=== PATIENT | female | born 1955 | race Caucasian/White ===

== ENCOUNTER 2020-04-27 11:11 | Outpatient (CLI) | payer BC, MEDICARE, SELFPAY ==
--- NOTE | ~2020-04-27 | XR_ITS ---
XR knee LT 2V DATE: 04/27/2020 11:35 INDICATION: Fall years ago. Anterior and medial left knee pain TECHNIQUE: AP and lateral views COMPARISON: None FINDINGS: There is mild periarticular spurring at all 3 compartments. There is moderate loss of heigh t of medial compartment joint space. No fracture or dislocation or joint effusion. No periosteal reaction or bone destruction. No radiopaq ue intra-articular loose body or chondrocalcinosis. IMPRESSION: Tricompartment osteoarthritis Reviewed, dictated and finalized at location A.
== END 2020-04-27 11:12 | disposition home or self-care (01) ==
LOC: ANHIMG 11:17
PROVIDERS: PCP Family Medicine; Visit Provider Nurse Practitioner Family
DX: M25.569 Pain in unspecified knee (principal); M17.12 Unilateral primary osteoarthritis, left knee
CPT/HCPCS: 73560

== ENCOUNTER 2023-04-10 13:19 | Outpatient (CLI) | payer MEDICARE, OTHER, SELFPAY ==
--- NOTE | ~2023-04-10 | MM_ITS ---
EXAMINATION: MM screening [facility] BI w margoth HISTORY: Screening mammogram TECHNIQUE: Craniocaudal and mediolateral oblique 3-D tomosynthesis images were obtained and synthetic 2-D images were generated. CAD analysis was submitted and interpreted. COMPARISON: 06/13/2012, 05/16/2008 BREAST PARENCHYMAL COMPOSITION: There are scattered areas of fibroglandular density. FINDINGS: RIGHT BREAST: There is a possible mass in the anterior third of the lower-outer breast 3 cm from the nipple. LEFT BREAST: There is a possible mass in the middle third of the slightly upper breast 7 cm from the nipple. IMPRESSION: 1. Possible breast masses. 2. Additional mammographic views and possible breast ultrasound are recommended. BI-RADS Category 0: Incomplete: Needs additional imaging evaluation. Reviewed, dictated and finalized at location A. IMPRESSION: 1. Possible breast masses. 2. Additional mammographic views and possible breast ultrasound are recommended . BI-RADS Category 0: Incomplete: Needs additional imaging evaluation.
--- NOTE | ~2023-04-10 | DEXA_ITS ---
Bone Density Report Name: MERRILL ALEXANDER Age: 67 Sex: Female Ethnicity: White Date of : 1955 Indication: postmenopausal; screening for osteoporosis; height loss; cancer; hysterectomy; Referring Provider: Juan Braden Study: Bone densitometry was performed. Exam Date: April 10, 2023 Accession number: [id number] Bone Density: Region BMD T-score Z-score Classification AP Spine(L1, L2, L4) 1.185 1.4 3.3 Normal Femoral Neck (Left) 0.909 0.5 2.2 Normal Total Hip (Left) 1.074 1.1 2.5 Normal Femoral Neck (Right) 0.890 0.4 2.1 Normal Total Hip (Right) 1.096 1.3 2.7 Normal Femoral Neck Mean 0.899 0.5 2.1 Normal Total Hip Mean 1.085 1.2 2.6 Normal World Health Organization criteria for BMD impression classify patients as: Normal (T-score at or above -1.0), Osteopenia (T-score between -1.0 and -2.5), or Osteoporosis (T-score at or below -2.5). 10-year Fracture Risk: FRAX not reported because: All T-scores for Spine Total, Hip Total, Femoral Neck at or above -1.0 Clinical Information Provided by Patient: Has the following medical conditions: Cancer, Hysterectomy Patient maximum height was 64 Menopause Age: 57 No regular weight bearing exercise Does not regularly consume dairy products Drinks caffeinated beverages Onset of menses at age 11 Number of children 3 Impression: The patient has normal bone mass. Discussion: LOW RISK OF FRACTURE; BONE DENSITY IS WELL ABOVE THE MINIMUM DESIRABLE LEVEL AND ABOVE AVERAGE FOR AGE AND SEX AT ALL SKELETAL SITES TESTED. This person's bone density is above expected limits for age and sex. This is rarely clinically significant, but should be pursued if there are significant musculoskeletal complaints. The patient should follow a healthful lifestyle (good nutrition with adequate calcium and vitamin D, and appropriate weight-bearing exercise). Follow-Up: Consider repeating this study in 5 years or sooner if there is some new clinical indication. Reported by: Dr. Nic Teran on 04/10/2023 1:53:00 PM. Reviewed, dictated and finalized at location A. [facility]
== END 2023-04-10 13:20 | disposition home or self-care (01) ==
LOC: CHSIMG 13:22
PROVIDERS: PCP Family Medicine; Visit Provider Obstetrics & Gynecology
DX: Z12.31 Encounter for screening mammogram for malignant neoplasm of breast (principal); Z78.0 Asymptomatic menopausal state; R92.8 Other abnormal and inconclusive findings on diagnostic imaging of breast
CPT/HCPCS: 77063; 77067; 77080

== ENCOUNTER 2023-04-17 09:38 | Outpatient (CLI) | payer MEDICARE, OTHER, SELFPAY ==
--- NOTE | ~2023-04-17 | MMUS_ITS ---
EXAMINATION: MM diagnostic [facility] BI w margoth, US breast BI complete HISTORY: Possible breast masses noted on 04/06/2023 bilateral screening mammogram examinations TECHNIQUE: Additional 3-D tomosynthesis images of both breasts were performed and synthetic 2-D image s were generated. CAD analysis was submitted and interpreted. High resolution complete bilateral chris st ultrasound examination including all 4 quadrants and subareolar areas was performed. COMPARISON: 04/06/2023 bilateral screening mammogram 06/13/2012 bilateral screening mammogram FINDINGS: MAMMOGRAPHIC FINDINGS: Scattered occasional bilateral subcentimeter low-density circumscribed opacities are noted. No suspicious mass or architectural distortion, malignant calcification, skin thickening or retractio n is evident in either breast. ULTRASOUND: There are bilateral occasional scattered circumscribed hypoechoic or sonolucent subcentimeter lesions including right breast 12:00 7 cm from nipple, 6:00 near nipple and 8:00 6 cm from nipple and on the left at 12:00 3 cm from the nipple and 10:00 3 cm from the nipple. No suspicious shadowing or vascul arity is noted in association with any of these. No suspicious solid mass or shadowing of either breast is detected. IMPRESSION: 1. Benign findings; no mammographic or sonographic evidence of malignancy 2. Routine annual mammographic screening is recommended BI-RADS Category 2: Benign finding(s). Reviewed, dictated and finalized at location A. IMPRESSION: 1. Benign findings; no mammographic or sonographic evidence of malignancy 2. Routine annual mammographic screening is recommended BI-RADS Category 2: Benign finding(s).
== END 2023-04-17 09:39 | disposition home or self-care (01) ==
LOC: CHSIMG 09:39
PROVIDERS: PCP Family Medicine; Visit Provider Obstetrics & Gynecology
DX: R92.8 Other abnormal and inconclusive findings on diagnostic imaging of breast (principal)
CPT/HCPCS: 76641; 77062; 77066; G0279

== ENCOUNTER 2023-09-26 03:04 | Day surgery (SDC) | payer MEDICARE, OTHER, SELFPAY ==
[2023-08-28 14:47] VITALS: BMI 40.0
--- NOTE | 2023-09-22 10:15 | SUR.PREOP ---
Patient called regarding upcoming procedure. Reviewed preop instructions, appointment times, and procedure prep.
--- NOTE | 2023-09-25 14:55 | PM.HPGS ---
History of Present Illness History of Present Illness Consent: Risks, benefits, and alternatives have been discussed and questions answered. Patient agrees to proceed with procedure. Chief complaint: fam hx colon ca Narrative: Angela Johns is a 67 year old female Referred for colon cancer screening due to the fact that her father had colon cancer. Review of Systems Review of Systems: All systems reviewed & are unremarkable except as noted in HPI and below PMFSH Past Medical History Medical History BMI 36.0-36.9,adult BMI 39.0-39.9,adult Essential (primary) hypertension History of endometrial cancer History of vaginal delivery Mixed hyperlipidemia Surgical History Surgical History H/O: hysterectomy Family History Family History Mother Hypertension Father Carcinoma of colon Sibling Hypertension Social History Social History Smoking status: Never smoker Second hand tobacco smoke exposure: No Alcohol intake: current Drinks per week: 1 Substance use: never Substance use type: does not use Do You Feel Safe in your Home?: Yes Lack of Transportation: No Lack of Food: Never True Current Housing: I Have Housing Concerned About Future Housing: No Difficulty Paying Gas/Electric Bills: No Difficulty Paying for Meds: No Currently Unemployed: No Education: High School Diploma/GED Difficulty w/ Childcare or Family Care: No Living arrangements: with family Additional living arrangements comments: Occupation/Education: retired Additional occupation/education comments: [employer] Gender identity (if verbalized by the patient): Female Sexual Orientation (if Verbalized by the Patient): Straight or Heterosexual Spiritual care concerns: No Agree to blood products: Yes Meds Home Medications and Allergies Home Medications Medication Instructions Recorded Confirmed Type acetaminophen 650 mg 650 mg PO Q12H 06/22/21 09/26/23 History tablet,extended release (Tylenol Arthritis Pain) rosuvastatin 20 mg tablet (Crestor) 20 mg PO DAILY #90 tabs 08/04/22 09/26/23 Rx valsartan 160 1 tablet PO DAILY #90 tabs 04/25/23 09/26/23 Rx mg-hydrochlorothiazide 25 mg tablet paroxetine HCl 10 mg tablet 10 mg PO DAILY #90 tabs 07/21/23 09/26/23 Rx meloxicam 15 mg tablet 15 mg PO DAILY #90 tabs 08/15/23 09/26/23 Rx Allergies Allergy/AdvReac Type Severity Reaction Status Date / Time No Known Allergies Allergy Verified 09/26/23 07:52 Exam Const: General: alert Orientation/consciousness: patient oriented x3 Resp: Auscultation: clear to auscultation bilaterally Cardio: Rhythm: regular rhythm GI: GI Palp: Yes Soft to palpation and No Tenderness to palpation present (GI) Neuro: General: patient oriented x3 Assessment and Plan Assessment and plan (1) Colon cancer screening: Code(s): Z12.11 - Encounter for screening for malignant neoplasm of colon Status: Acute Assessment and Plan: Colonoscopy with possible biopsy or polypectomy or cautery or injection of substances.
[2023-09-26 07:18] VITALS: BP 172/83; PULSE 69; RESP 18; TEMP 36.2; O2SAT 96
[2023-09-26] MEDS: LACTATED RINGERS 1,000 ML 150 ML IV CONT (07:44)
--- NOTE | 2023-09-26 07:50 | WPDANESEPPF ---
Anes - Initial Pre Proc Eval Procedure: Operation Date: 09/26/23 08:30 Proposed Procedures p Colonoscopy - Timo Small MD Date/Time: 09/26/23 07:50 Surgeon: Timo Small MD Pre Op Diagnosis: fam hx colon ca Patient Data Age: 67 Gender: F Height: 1.6 m Weight: 100.2 kg Last Vital Signs Temp 97.1 F L 09/26/23 07:18 Pulse 69 09/26/23 07:18 Resp 18 09/26/23 07:18 BP 172/83 H 09/26/23 07:18 Pulse Ox 96 09/26/23 07:18 O2 Del Method Room Air 09/26/23 07:18 Allergies Allergy/AdvReac Type Severity Reaction Status Date / Time No Known Allergies Allergy Verified 09/26/23 07:52 Home Medications Medication Instructions Recorded Confirmed Type acetaminophen 650 mg 650 mg PO Q12H 06/22/21 09/08/23 History tablet,extended release (Tylenol Arthritis Pain) rosuvastatin 20 mg tablet (Crestor) 20 mg PO DAILY #90 tabs 08/04/22 09/08/23 Rx valsartan 160 1 tablet PO DAILY #90 tabs 04/25/23 09/08/23 Rx mg-hydrochlorothiazide 25 mg tablet paroxetine HCl 10 mg tablet 10 mg PO DAILY #90 tabs 07/21/23 09/08/23 Rx meloxicam 15 mg tablet 15 mg PO DAILY #90 tabs 08/15/23 09/08/23 Rx Patient hx anesthesia problems: none Family hx anesthesia problems: none Results Review: All pre-operative results and documents have been reviewed as part of the pre-operative evaluation. [facility] Past Medical History Medical History BMI 36.0-36.9,adult BMI 39.0-39.9,adult Essential (primary) hypertension History of endometrial cancer History of vaginal delivery Mixed hyperlipidemia Surgical History Surgical History H/O: hysterectomy Family History Family History Mother Hypertension Father Carcinoma of colon Sibling Hypertension Social History Social History Smoking status: Never smoker Second hand tobacco smoke exposure: No Alcohol intake: current Drinks per week: 1 Substance use: never Substance use type: does not use Do You Feel Safe in your Home?: Yes Lack of Transportation: No Lack of Food: Never True Current Housing: I Have Housing Concerned About Future Housing: No Difficulty Paying Gas/Electric Bills: No Difficulty Paying for Meds: No Currently Unemployed: No Education: High School Diploma/GED Difficulty w/ Childcare or Family Care: No Living arrangements: with family Additional living arrangements comments: Occupation/Education: retired Additional occupation/education comments: [employer] Gender identity (if verbalized by the patient): Female Sexual Orientation (if Verbalized by the Patient): Straight or Heterosexual Spiritual care concerns: No Agree to blood products: Yes Anes - Eval Final PreProcedure Day of Procedure 09/26/23 07:50 Patient weight: morbidly obese Heart: regular rate and rhythm Lungs: clear to auscultation Airway: Mallampati scale class II Neurological: alert and oriented Last oral intake: >/= 8 hours ASA classification: III Emergent: no Anesthetic plan: proceed Anesthesia type and monitoring: general GIVS and standard monitoring Results Review: All pre-operative results and documents have been reviewed as part of the pre-operative evaluation. Informed Consent: The patient's anesthetic plan and its attendant risks and benefits were discussed with the patient/family/POA. Questions were solicited and answers provided to the satisfaction of the patient/family/POA.
[2023-09-26 08:55] VITALS: BP 115/58; PULSE 59; RESP 21; O2SAT 94
[2023-09-26 09:01] VITALS: BP 118/62; PULSE 58; RESP 16; O2SAT 94
[2023-09-26 09:11] VITALS: BP 115/58; PULSE 59; RESP 21; O2SAT 94
== END 2023-09-26 09:17 | disposition home or self-care (01) ==
PROVIDERS: PCP Family Medicine; Visit Provider Internal Medicine Gastroenterology
PROC: 0DJD8ZZ Inspection of Lower Intestinal Tract, Via Natural or Artificial Opening Endoscopic (ICD-10-PCS; CPT 45378; principal; 2023-09-26 08:30)
DX: Z12.11 Encounter for screening for malignant neoplasm of colon (principal); K56.609 Unspecified intestinal obstruction, unspecified as to partial versus complete obstruction; K57.30 Diverticulosis of large intestine without perforation or abscess without bleeding; Z80.0 Family history of malignant neoplasm of digestive organs; I10 Essential (primary) hypertension; E78.2 Mixed hyperlipidemia; Z85.42 Personal history of malignant neoplasm of other parts of uterus; E66.01 Morbid (severe) obesity due to excess calories; Z68.39 Body mass index [BMI] 39.0-39.9, adult
CPT/HCPCS: G0105; J2704; J7120

== ENCOUNTER 2024-10-01 09:15 | Outpatient (CLI) | payer MEDICARE, OTHER, SELFPAY ==
--- NOTE | 2024-10-01 09:26 | ECHO_ITS ---
Patient Info Name: Angela Johns Age: 68 years : 1955 Gender: Female Ht: 63 in Wt: 223 lbs BSA: 2.17 m2 HR: 64 bpm BP: 180 / 93 mmHg Technical Quality: Fair Exam Date: 10/01/2024 10:10 AM Exam Location: Echo Lab Patient Status: Outpatient Admit Date: 10/01/2024 Staff Ordering Physician: Olimpia Navarro NP Cold Strip Feeder: Rachael Garcia RDCS Attending Provider: Olimpia Navarro NP Referring Physician: Ramon HENRY; Exam Type: CA echo doppler color flow Study Info Indications - OTHER FORMS OF DYSPNEA Complete two-dimensional, color flow and Doppler transthoracic echocardiogram is performed. Summary 1. Complete two-dimensional, color flow and Doppler transthoracic echocardiogram is performed. 2. Left ventricular chamber dimension is normal. 3. Left ventricular systolic function is normal, estimated at 60-65%. 4. There is mild concentric increased left ventricular wall thickness. 5. The left ventricular diastolic function is grade I diastolic dysfunction. 6. E/e' 12 is mildly elevated. 7. Left atrial chamber dimension is mildly enlarged. 8. Dilated inferior vena cava with >50% collapse upon inspiration consistent with elevated right atrial pressure, 10 mmHg. Left Ventricle E/e' 12 is mildly elevated. Left ventricular chamber dimension is normal. Left ventricular systolic function is normal, estimated at 60-65%. There is mild concentric increased left ventricular wall thickness. The left ventricular diastolic function is grade I diastolic dysfunction. Right Ventricle Right ventricular systolic function is normal and with normal TAPSE 1.9 cm. Right ventricular chamber dimension is normal. Left Atria Left atrial chamber dimension is mildly enlarged. Right Atria Right atrial chamber dimension is normal. Aortic Valve The aortic valve is not well visualized. Cannot determine number of aortic valve leaflets. There is no aortic valve stenosis. There is no aortic valve regurgitation. Pulmonic Valve There is no pulmonic regurgitation. Mitral Valve There is no mitral valve stenosis. There is no mitral valve regurgitation. Tricuspid Valve There is no tricuspid valve regurgitation. Pericardium/Pleural There is no pericardial effusion. Inferior Vena Cava Dilated inferior vena cava with >50% collapse upon inspiration consistent with elevated right atrial pressure, 10 mmHg. Aorta The aortic root size at the sinus of Valsalva is normal. Left Ventricular Outflow Tract Name Value Normal LVOT 2D LVOT Diameter 2.1 cm LVOT Doppler LVOT Peak Gradient 6 mmHg LVOT Mean Gradient 3 mmHg LVOT VTI 32 cm LVOT VTI/AV VTI Ratio 0.9 LVOT Stroke Volume 110 ml LVOT CO 6.5 l/min LVOT CI 3.0 l/min/m2 Pulmonic Valve Name Value Normal RVOT Doppler RVOT Peak Gradient 4 mmHg PV Doppler PV Peak Gradient 5 mmHg Mitral Valve Name Value Normal MV Doppler MV Decel [facility] 361 cm/s2 MV PHT 52 ms MV Area (PHT) 4.2 cm2 4.0-5.0 MV Diastolic Function MV E Peak Velocity 65 cm/s MV A Peak Velocity 107 cm/s MV E/A 0.6 MV Decel Time 180 ms MV Annular TDI MV E/e' (Septal) 13.3 <=8.0 MV E/e' (Lateral) 12.0 <=8.0 MV E/e' (Average) 12.6 Tricuspid Valve Name Value Normal Estimated PAP/RSVP RA Pressure 10 mmHg <=5 Aorta Name Value Normal Ascending Aorta Ao Root Diameter (MM) 2.3 cm Ao Root Diam Index (MM) 1.1 cm/m2 Aortic Valve Name Value Normal AV Doppler AV Peak Velocity 158 cm/s AV Peak Gradient 10 mmHg AV Mean Gradient 6 mmHg AV VTI 37 cm AV Area (Cont Eq VTI) 3.0 cm2 >=3.0 AV Area (Cont Eq Davis) 2.6 cm2 AV Regurgitation 2D LVOT Area 3.4 cm2 Ventricles Name Value Normal LV Dimensions 2D/MM IVS Diastolic Thickness (2D) 1.3 cm 0.6-1.0 LVID Diastole (2D) 4.8 cm 3.8-5.2 LVIW Diastolic Thickness (2D) 1.3 cm 0.6-0.9 LVID Systole (2D) 2.8 cm 2.2-3.5 LVOT Diameter 2.1 cm LV Mass (2D Cubed) 241.28 g 67.00-162.00 LV Mass Index (2D Cubed) 111 g/m2 43-95 Relative Wall Thickness (2D) 0.54 LV Fractional Shortening/Ejection Fraction 2D/MM LV Fractional Shortening (2D) 42 % 27-45 LV EF (2D Teicholz) 73 % 54-74 LV Diastolic Volume (4C MOD) 120 ml LV EF (4C MOD) 66 % LV Diastolic Volume (2C MOD) 112 ml LV EF (2C MOD) 66 % LV Diastolic Volume (BP MOD) 121 ml 46-106 LV Diastolic Volume Index (BP MOD) 55 ml/m2 29-61 LV Systolic Volume (BP MOD) 42 ml 14-42 LV Systolic Volume Index (BP MOD) 19 ml/m2 8-24 LV EF (BP MOD) 65 % 54-74 LV Diastolic Length (4C) 8.1 cm LV Systolic Length (4C) 6.4 cm LV Stroke Volume (4C MOD) 79 ml Atria Name Value Normal LA Dimensions LA Dimension (MM) 4.3 cm 2.7-3.8 LA Volume (4C A-L) 69 ml LA Volume (BP A-L) 73 ml RA Dimensions RA Area (4C) 14.8 cm2 <=18.0 Report Signatures
--- NOTE | 2024-10-01 09:26 | EST_ITS ---
Patient Info Name: Angela Johns Age: 68 years : 1955 Gender: Female Ht: 63 in Wt: 223 lbs BSA: 2.17 m2 HR: 59 bpm BP: 191 / 91 mmHg Exam Date: 10/01/2024 11:03 AM Exam Location: Echo Lab Patient Status: Outpatient Admit Date: 10/01/2024 Staff Ordering Physician: Olimpia Navarro NP Attending Provider: Olimpia Navarro NP Exercise Technologist: Antonia Aquino [facility] Exercise Physician: Justin Lee DO Exam Type: CA stress test treadmill Study Info A treadmill exercise stress test was performed. Summary 1. 1. Negative Marcel exercise stress test for ischemic ST changes by ECG criteria. 2. 2. Poor functional capacity, achieving 4.7 METs of workload. 3. 3. Baseline hypertension and hypertensive response to exercise. 4. 4. Appropriate HR response to exercise. 5. 5. Appropriate HR recovery at 1 minute post exercise. 6. 6. No imaging with stress testing. 7. 7. Patient informed of the above results. Protocol: Marcel Stress ECG Details Stage: REST Duration (min): 1 min : 43 sec Speed (mph): 0.0 Grade (%): 0 HR (bpm): 60 SBP (mmHg): 191 DBP (mmHg): 91 METS: --- Stage: REST Duration (min): 6 min : 1 sec Speed (mph): 0.0 Grade (%): 0 HR (bpm): 64 SBP (mmHg): 191 DBP (mmHg): 91 METS: --- Stage: STAGE 1 Duration (min): 1 min : 0 sec Speed (mph): 1.7 Grade (%): 10 HR (bpm): 101 SBP (mmHg): 191 DBP (mmHg): 91 METS: --- Stage: STAGE 1 Duration (min): 2 min : 0 sec Speed (mph): 1.7 Grade (%): 10 HR (bpm): 126 SBP (mmHg): 191 DBP (mmHg): 91 METS: --- Stage: STAGE 1 Duration (min): 3 min : 0 sec Speed (mph): 1.7 Grade (%): 10 HR (bpm): 138 SBP (mmHg): 237 DBP (mmHg): 109 METS: --- Stage: RECOVERY Duration (min): 0 min : 59 sec Speed (mph): 0.0 Grade (%): 0 HR (bpm): 124 SBP (mmHg): 237 DBP (mmHg): 109 METS: --- Stage: RECOVERY Duration (min): 1 min : 59 sec Speed (mph): 0.0 Grade (%): 0 HR (bpm): 92 SBP (mmHg): 237 DBP (mmHg): 109 METS: --- Stage: RECOVERY Duration (min): 2 min : 59 sec Speed (mph): 0.0 Grade (%): 0 HR (bpm): 85 SBP (mmHg): 220 DBP (mmHg): 102 METS: --- Stage: RECOVERY Duration (min): 3 min : 59 sec Speed (mph): 0.0 Grade (%): 0 HR (bpm): 76 SBP (mmHg): 220 DBP (mmHg): 102 METS: --- Stage: RECOVERY Duration (min): 4 min : 8 sec Speed (mph): 0.0 Grade (%): 0 HR (bpm): 76 SBP (mmHg): 197 DBP (mmHg): 94 METS: --- Rest HR: 64 bpm Peak HR: 140 bpm Rest Sys BP: 191 mmHg Peak Sys BP: 237 mmHg Max Pred HR: 151 bpm % Max Pred HR: 93 % Target HR: 128 bpm Max RPP: 33,180 bpm*mmHg Huntley Score: -5 BP Response: Patient exhibited a hypertensive response with stress Termination Reason: Reached target heart rate or workload Cardiac Symptoms: Shortness of breath Max ST Seg Deviation: -1.60 mm Total Time: 3 min : 0 sec Rest Huntley BP: 91 mmHg Peak Huntley BP: 109 mmHg Angina Score: None Total METS: 4.7 Resting ECG Sinus rhythm, borderline ST-T wave abnormality in anterolat/inf leads. Stress ECG No significant ST changes with exercise. Arrhythmias None. Report Signatures
== END 2024-10-01 09:16 | disposition home or self-care (01) ==
LOC: ANHCARD 09:16
PROVIDERS: PCP Family Medicine
DX: R94.39 Abnormal result of other cardiovascular function study (principal); R93.1 Abnormal findings on diagnostic imaging of heart and coronary circulation; R06.09 Other forms of dyspnea; E78.2 Mixed hyperlipidemia; I10 Essential (primary) hypertension
CPT/HCPCS: 93017; 93306

== ENCOUNTER 2024-12-03 13:42 | Outpatient (CLI) | payer MEDICARE, OTHER, SELFPAY ==
--- NOTE | ~2024-12-03 | XR_ITS ---
XR knee RT 3V Ordering provider: Lynnette Samano, MOTORMAN/WOMAN History: . M25.569 - Pain in unspecified knee . Comparison: None. FINDINGS: BONES: No acute fracture or dislocation. JOINT SPACES: Severe Narrowing of the medial compartment. Marginal osteophytes are also noted. SOFT TISSUES: Normal. IMPRESSION: No acute osseous abnormality right knee. Severe osteoarthritic changes. Reviewed, dictated and finalized at location A.
[2024-12-03 14:13] LABS: Basophils Percent Auto 0.4 % (0.2-1.2); Eosinophils Absolute Auto 0.1 K/mm3 (0-0.3); Eosinophils Percent Auto 1.2 % (0-4.4); Hematocrit 40.6 % (37.0-47.0); Hemoglobin 13.6 g/dL (12.0-15.0); Immature Granulocyte Absolute 0.01 K/mm3 (0.00-0.031); Immature Granulocyte Percent A 0.1 % (0-0.5); Lymphocytes Absolute Auto 2.76 K/mm3 (0.9-3.2); Lymphocytes Percent Auto 37.3 % (18.3-44.2); Mean Corpuscular HGB Conc 33.5 g/dl (32-36); Mean Corpuscular Hemoglobin 29.8 pg (26-34); Mean Corpuscular Volume 88.8 fl (80-100); Mean Platelet Volume 9.5 fl (7.4-10.4); Monocytes Absolute Auto 0.6 K/mm3 (0.1-0.6); Monocytes Percent Auto 7.6 % (2.6-8.5); Neutrophils Percent Auto 53.4 % (45.5-73.1); Platelet Count Result 212 k/mm3 (150-375); Red Blood Count 4.57 M/mm3 (4.2-5.4); Red Cell Distribution Width 13.5 % (11.5-14.5); White Blood Count 7.4 K/mm3 (4.5-10.0)
[2024-12-03 14:25] LABS: Alanine Aminotransferase 24 U/L (6-35); Albumin Level 4.8 g/dL (3.5-5.1); Alkaline Phosphatase 74 U/L (38-126); Anion Gap 9 mmol/L (4-12); Aspartate Amino Transferase 25 U/L (14-36); Bilirubin,Total 0.5 mg/dL (0.2-1.3); Blood Urea Nitrogen 16 mg/dL (7-17); Calcium 9.7 mg/dL (8.4-10.2); Carbon Dioxide 29 mmol/L (22-30); Chloride 101 mmol/L (98-107); Cholesterol 143 mg/dL (0-200); Estimated Glomerular Filt Rate > 60; Glucose 97 mg/dL (65-110); HDL Direct 56 mg/dL; Magnesium 1.8 mg/dL (1.6-2.3); Potassium 3.8 mmol/L (3.4-5.0); Sodium 139 mmol/L (137-145); Triglycerides 185 mg/dL (<150)
[2024-12-03 14:36] LABS: LDL Cholesterol Direct 48 mg/dL
--- OUTSIDE RECORDS SUMMARY | 2024-12-03 15:27 | XMS_ITS | Encounter Summary ---
Author Organization [facility] Address [address] [place] [id number] Care Team Providers Care Cigar Brander Name Role Phone Jay Whipple MD Primary Care Provider [phone] Encounter Details Date Type Department Care Team (Latest Contact Info) Description 12/02/2024 Travel Social History Tobacco Use Types Packs/Day Years Used Date Smoking Tobacco: Never Smokeless Tobacco: Never Alcohol Use Standard Drinks/Week Comments Not Currently 0 (1 standard drink = 0.6 oz pur e alcohol) Comments No Sex and Gender Information Value Date Recorded Sex Assigned at Not on file Legal Sex Female 4:19 PM CDT Gender Identity Not on file Sexual Orientation Not on file documented as of this encounter Plan of Treatment Not on file documented as of this encounter Visit Diagnoses Not on filedocumented in this encounter Care Teams Cigar Brander Relationship Specialty Start Date End Date Jay Whipple MD [address] [address] PCP - General FAMILY PRACTICE 07/04/21 documented as of this encounter
--- OUTSIDE RECORDS SUMMARY | 2024-12-03 15:27 | XMS_ITS | Encounter Summary ---
Author Organization [facility] Address [address] [place] [address] Care Team Providers Care Warehouse Receiver Name Role Phone Jay Whipple MD Primary Care Provider [phone] Encounter Details Date Type Department Care Team (Late st Contact Info) Description 12/02/2024 8:04 PM CDT - 12/02/2024 8:48 PM CDT Emergency [facility] Emergency Room [id number] [place] [id number] Discharge Disposition: Left w/o Being Seen Social History Tobacco Use Types Packs/Day Years [...] on filedocumented in this encounter Care Teams Warehouse Receiver Relationship Specialty Start Date End Date Jay Whipple MD [address] [facility] [place] [id number] PCP - General FAMILY PRACTICE 07/04/21 documented as of this encounter
--- OUTSIDE RECORDS SUMMARY | 2024-12-03 15:27 | XMS_ITS | Clinical Summary ---
Author Organization [facility] Address [facility] [place] [address] Care Team Providers Care Aspnet Developer Name Role Phone Jay Whipple MD Primary Care Provider [phone] Allergies No known active allergies Encounters Date Type Department Care Team Description 12/02/2024 8:04 PM CDT - 12/02/2024 8:48 PM CDT Emergency [facility] Emergency Room [address] [place] [address] Discharge Disposition: Left w/o Being Seen 12/02/2024 Travel from Last 3 Months Family History Medical History Relation Comments Cancer Father Hypertension Mother Relation Status Comments Father Mother Social History Tobacco Use Types Packs/Day Years Used Date Smoking Tobacco: Never Smokeless Tobacco: Never Alcohol Use Standard Drinks/Week Comments Not Currently 0 (1 standard drink = 0.6 oz pur e alcohol) Comments No Sex and Gender Information Value Date Recorded Sex Assigned at Not on file Legal Sex Female 4:19 PM CDT Gender Identity Not on file Sexual Orientation Not on file Last Filed Vital Signs Vital Sign Reading Time Taken Comments Blood Pressure 148/77 07/04/2021 12:53 PM CDT Pulse 65 07/04/2021 12:53 PM CDT Temperature 36.9 C (98.5 F) 07/04/2021 12:53 PM CDT Respiratory Rate 18 07/04/2021 12:53 PM CDT Oxygen Saturation 98% 07/04/2021 12:53 PM CDT Inhaled Oxygen Concentration - - Weight 97.5 kg (215 lb) 07/04/2021 12:53 PM CDT Height 162.6 cm (5' 4 ) 07/04/2021 12:53 PM CDT Body Mass Index 36.9 07/04/2021 12:53 PM CDT Plan of Treatment Health Maintenance Due Date Last Done Comments Colorectal Cancer Screening Colonoscopy (10 Years) 1955 Hepatitis C 1972 DTaP, Tdap and Td Vaccines ( 1 - Tdap) 1973 Mammogram Screening 1994 Zoster Vaccines (1 of 2) 2004 Annual Medicare Wellness Visit 12/13/2019 Dexa Scan (General) 12/13/2019 Pneumococcal Vaccine: 65+ Years (1 of 1 - PCV) 12/13/2019 COVID-19 Vaccine (3 - 2023-2 5 season) 2024 01/26/2021, 01/05/2021 Influenza Adult (#1) 2024 RSV Immunization or 60+ Years (1 - 1-dose 75+ series) 2029 Meningococcal B Vaccine Aged Out No l onger eligible based on patient's age to complete this topic Meningococcal Vaccine Aged Out No tamia kerri eligible based on patient's age to complete this topic RSV Immunizations Under 20 Months Aged Out No longer eligible b ased on patient's age to complete this topic Insurance MEDICARE Care Teams Aspnet Developer Relationship Specialty Start Date End Date Jay Whipple MD [address] [address] PCP - General FAMILY PRACTICE 07/04/21
[2024-12-04 12:07] LABS: Vitamin D 25 Hydroxy 23.6 ng/mL
== END 2024-12-03 13:43 | disposition home or self-care (01) ==
LOC: ANHLAB 13:45
PROVIDERS: PCP Family Medicine; Visit Provider Nurse Practitioner Adult Health
DX: E78.5 Hyperlipidemia, unspecified (principal); I10 Essential (primary) hypertension; E55.9 Vitamin D deficiency, unspecified; R60.0 Localized edema; M25.561 Pain in right knee
CPT/HCPCS: 36415; 73562; 80053; 80061; 82306; 82607; 82746; 83735; 85025

== ENCOUNTER 2025-04-30 11:36 | Outpatient (CLI) | payer MEDICARE, OTHER, SELFPAY ==
--- NOTE | ~2025-04-30 | US_ITS ---
EXAMINATION:US venous doppler LE RT INDICATION:Localized edema TECHNIQUE: Multiple grayscale, color flow and Doppler images of the right lower extremity deep venous systems were obtained and reviewed. COMPARISON:No prior studies for comparison. FINDINGS: The common femoral, superficial femoral and popliteal veins demonstrate normal respiratory variation, augmentation and compressibility. Color flow is also seen within the posterior tibial, pe roneal, greater saphenous and profunda veins. There is a Nina's cyst of the popliteal fossa measurin g 2.5 cm greatest dimension. IMPRESSION: 1: No lower extremity deep venous thrombosis. Reviewed, dictated and finalized at location A.
--- OUTSIDE RECORDS SUMMARY | 2025-04-30 11:41 | XMS_ITS | Clinical Summary ---
Author Organization [facility] Address [facility] [place] [address] Care Team Providers Care Winding Inspector And Tester Name Role Phone Jay Whipple MD Primary Care Provider [phone] Allergies No known active allergies Family History Medical History Relation Comments Cancer [...] 12:53 PM CDT Height 162.6 cm (5' 4) 07/04/2021 12:53 PM CDT Body Mass Index 36.9 07/04/2021 12:53 PM CDT Plan of Treatment Health Maintenance Due Date Last Done Comments Colorectal Cancer Screening Colonoscopy (10 Years) 1954 Hepatitis C 1972 DTaP, Tdap and Td Vaccines ( 1 - Tdap) 1973 Mammogram Screening 1994 Pneumococcal Vaccine: 50+ Years (1 of 1 - PCV) 2004 Zoster Vaccines (1 of 2) 2004 Annual Medicare Wellness Visit 12/13/2019 Dexa Scan (General) 12/13/2019 COVID-19 Vaccine (3 - 2023-2 5 season) 2024 01/26/2021, 01/05/2021 RSV Immunization or 60+ Years (1 - [...] complete this topic Insurance MEDICARE Care Teams Winding Inspector And Tester Relationship Specialty Start Date End Date Jay Whipple MD [address] [address] PCP - General FAMILY PRACTICE 07/04/21
== END 2025-04-30 11:37 | disposition home or self-care (01) ==
PROVIDERS: PCP Family Medicine; Visit Provider Orthopaedic Surgery
DX: R60.0 Localized edema (principal)
CPT/HCPCS: 93971